=== PATIENT | male | born 1965 | race Caucasian/White ===

== ENCOUNTER 2016-09-02 12:15 | Observation (INO) | payer OTHER ==
[~2016-09-02] VITALS: Ht 180.3 cm; Wt 95.5 kg
[~2016-09-02 12:15] MED LIST: Ambien PO; CELEXA20 MG PO; Celexa PO; DILANTIN100 MG PO; LIBRIUM25 MG PO; NOHOMEMEDS; SUBOXONE; TRAZODONE; TRAZODONE HCL50 MG PO
[2016-09-02 13:46] LABS: HEMATOCRIT 41.1 % (38.0-50.0); MCH 31.3 PG (29.0-34.0); MCHC 34.5 G/DL (30.0-36.0); MCV 90.7 FL (86-99); MEAN PLAT.VOLUME 10.1 uM^3 (9.0-12.4); PLATELET COUNT 233 K/uL (156-360); RBC DIS.WIDTH-CV 13.8 % (11.8-14.6); RBC DIS.WIDTH-SD 44.7 % (39-53); RED BLOOD COUNT 4.53 M/uL (4.00-5.50); WHITE BLOOD COUNT 5.6 K/uL (4.1-10.2)
[2016-09-02 13:54] LABS: CHLORIDE 110 mEq/L (99-109); POTASSIUM 4.1 mEq/L (3.7-5.4); SODIUM 144 mEq/L (136-147)
[2016-09-02 13:56] LABS: GLUCOSE 104 mg/dL (70-99)
[2016-09-02 13:57] LABS: ANION GAP 12 MEQ/L (2-14)
[2016-09-02 14:00] LABS: GFR ESTIMATE (CALCULATED) > 59 mL/min/
[2016-09-02 14:01] LABS: UREA NITROGEN (BUN) 15 mg/dL (9-23)
[2016-09-02 14:04] LABS: TROP-I INTERPRETATION NEGATIVE; TROPONIN-I < 0.01 ng/mL (0.0-0.30)
[2016-09-02 14:31] LABS: SERUM ETHYL ALCOHOL 171 mg/dL
[2016-09-02] MEDS ORDERED: ADVIL200 MG PO (14:59)
[2016-09-02 15:35] LABS: D-DIMER ELISA 0.31 mg/L FEU (< 0.57)
[2016-09-02 16:30] VITALS: BP 142/65
[2016-09-02 20:57] LABS: TROP-I INTERPRETATION NEGATIVE; TROPONIN-I < 0.01 ng/mL (0.0-0.30)
[2016-09-02 21:26] VITALS: BP 135/61
[2016-09-03 02:11] LABS: TROP-I INTERPRETATION NEGATIVE; TROPONIN-I < 0.01 ng/mL (0.0-0.30)
[2016-09-03 07:05] LABS: HEMATOCRIT 40.1 % (38.0-50.0); MCH 30.6 PG (29.0-34.0); MCHC 33.2 G/DL (30.0-36.0); MCV 92.2 FL (86-99); MEAN PLAT.VOLUME 10.5 uM^3 (9.0-12.4); PLATELET COUNT 211 K/uL (156-360); RBC DIS.WIDTH-SD 47.5 % (39-53); RED BLOOD COUNT 4.35 M/uL (4.00-5.50)
[2016-09-03 07:13] LABS: PROTHROMBIN TIME 10.5 (9.2-11.2)
[2016-09-03 07:15] LABS: WHITE BLOOD COUNT 8.2 K/uL (4.1-10.2)
[2016-09-03 07:26] LABS: ANION GAP 6 MEQ/L (2-14); CHLORIDE 106 MEQ/L (99-109); GFR ESTIMATE (CALCULATED) > 59 mL/min/; GLUCOSE 86 mg/dL (70-99); POTASSIUM 4.4 MEQ/L (3.7-5.4); SAMPLE HEMOLYSIS CHECK 0; SAMPLE ICTERIC CHECK 0; SAMPLE LIPEMIA CHECK 0; SODIUM 141 MEQ/L (136-147); UREA NITROGEN (BUN) 19 mg/dL (9-23)
[2016-09-03 08:00] VITALS: BP 132/67
[2016-09-03 12:52] VITALS: BP 131/62
[2016-09-03] MEDS ORDERED: TRAZODONE HCL150 MG PO (14:03)
[2016-09-03] MEDS ORDERED: LOPRESSOR25 MG PO (14:07)
[2016-09-03] MEDS ORDERED: CELEXA40 MG PO (14:08)
[2016-09-03] MEDS ORDERED: METOPROLOL SUCC25 MG PO (14:19)
== END 2016-09-03 15:36 | disposition home or self-care (01) ==
LOC: EME 12:15 → EDOF 14:31 → 5WEST 14:31
PROVIDERS: Emergency Medicine; Nurse Practitioner Adult Health
DX: R07.9 Chest pain, unspecified (principal); F10.288 Alcohol dependence with other alcohol-induced disorder; F32.9 Major depressive disorder, single episode, unspecified; Y90.6 Blood alcohol level of 120-199 mg/100 ml; R94.31 Abnormal electrocardiogram [ECG] [EKG]; R06.02 Shortness of breath; Z95.828 Presence of other vascular implants and grafts; Z88.6 Allergy status to analgesic agent; Z88.7 Allergy status to serum and vaccine; Z86.69 Personal history of other diseases of the nervous system and sense organs
CPT/HCPCS: 71020; 80048; 82948; 83880; 84484; 85027; 85379; 85610; 93005; 99281; 99285; G0378; G0480

== ENCOUNTER 2016-12-08 02:46 | Emergency (ER) | payer OTHER ==
[~2016-12-08] VITALS: Ht 175.3 cm; Wt 98.9 kg
[~2016-12-08 02:46] MED LIST changes: +ADVIL200 MG PO; +CELEXA40 MG PO; +LOPRESSOR25 MG PO; +METOPROLOL SUCC25 MG PO; +TRAZODONE HCL150 MG PO
[2016-12-08 03:24] VITALS: BP 102/69
[2016-12-09] MEDS ORDERED: CELEXA20 MG PO (07:41)
[2016-12-09] MEDS ORDERED: IBUPROFEN400 MG PO (07:56)
[2016-12-09] MEDS ORDERED: TOPROL XL25 MG PO (07:57)
== END 2016-12-08 03:38 | disposition home or self-care (01) ==
LOC: EME 02:46
DX: F32.9 Major depressive disorder, single episode, unspecified (principal); F10.99 Alcohol use, unspecified with unspecified alcohol-induced disorder; Z59.0 Homelessness; F17.200 Nicotine dependence, unspecified, uncomplicated
CPT/HCPCS: 99281; 99284

== ENCOUNTER 2016-12-09 03:21 | Inpatient (IN) | payer OTHER ==
[~2016-12-09] VITALS: Ht 182.9 cm; Wt 98.9 kg
[2016-12-09 04:14] LABS: HEMATOCRIT 40.4 % (38.0-50.0); MCH 31.2 PG (29.0-34.0); MCHC 34.4 G/DL (30.0-36.0); MCV 90.6 FL (86-99); MEAN PLAT.VOLUME 9.9 uM^3 (9.0-12.4); PLATELET COUNT 195 K/uL (156-360); RBC DIS.WIDTH-CV 12.6 % (11.8-14.6); RBC DIS.WIDTH-SD 41.4 % (39-53); RED BLOOD COUNT 4.46 M/uL (4.00-5.50); WHITE BLOOD COUNT 7.3 K/uL (4.1-10.2)
[2016-12-09 04:25] LABS: CHLORIDE 109 mEq/L (99-109); POTASSIUM 2.8 mEq/L (3.7-5.4); SODIUM 142 mEq/L (136-147)
[2016-12-09 04:27] LABS: GLUCOSE 100 mg/dL (70-99)
[2016-12-09 04:28] LABS: ANION GAP 13 MEQ/L (2-14)
[2016-12-09 04:30] LABS: SERUM ETHYL ALCOHOL 163 mg/dL
[2016-12-09 04:31] LABS: GFR ESTIMATE (CALCULATED) > 59 mL/min/
[2016-12-09 04:33] LABS: UREA NITROGEN (BUN) 17 mg/dL (9-23)
[2016-12-09 04:34] LABS: SALICYLATE < 5.0 MG/DL (15-30)
[2016-12-09] MEDS ORDERED: CELEXA20 MG PO (07:41)
[2016-12-09 07:54] LABS: ADD MEDTOX COMMENT Y; AMPHETAMINE NEGATIVE (500 ng/mL); BARBITURATES PRESUMPTIVE POSITIVE (200 ng/mL); BENZODIAZEPINES NEGATIVE (150 ng/mL); COCAINE NEGATIVE (150 ng/mL); INTERNAL CONTROLS VALID? YES; METHADONE NEGATIVE (200 ng/mL); METHAMPHETAMINE NEGATIVE (500 ng/mL); OPIATES (MORPHINE) NEGATIVE (100 ng/mL); OXYCODONE NEGATIVE (100 ng/mL); PHENCYCLIDINE NEGATIVE (25 ng/mL); PROPOXYPHENE NEGATIVE (300 ng/mL); THC CANNABINOIDS NEGATIVE (50 ng/mL); TRICYCLIC ANTIDEPRESSANTS NEGATIVE (300 ng/mL)
[2016-12-09] MEDS ORDERED: IBUPROFEN400 MG PO (07:56)
[2016-12-09] MEDS ORDERED: TOPROL XL25 MG PO (07:57)
[2016-12-09 08:29] LABS: BARBITUATES QUANT VALUE 0 NG/ML
[2016-12-09 12:04] VITALS: BP 153/84
[2016-12-09 15:35] VITALS: BP 142/77
[2016-12-10 09:00] VITALS: BP 152/83
[2016-12-10 14:01] VITALS: BP 139/78
[2016-12-10 16:05] VITALS: BP 171/84
[2016-12-10 18:28] VITALS: BP 162/83
[2016-12-11 07:45] VITALS: BP 126/77
[2016-12-11 15:56] VITALS: BP 152/77
[2016-12-12 07:57] VITALS: BP 127/64
[2016-12-12 15:54] VITALS: BP 124/64
[2016-12-13 08:14] VITALS: BP 147/83
== END 2016-12-13 12:30 | disposition other institution (70) | DRG 885 ==
LOC: EME → EDBD 03:21 → EME 03:21 → 1WEST 10:05 → EDOF 10:05 → 1WEST 11:58
PROVIDERS: Emergency Medicine
DX: F33.9 Major depressive disorder, recurrent, unspecified (principal); G40.909 Epilepsy, unspecified, not intractable, without status epilepticus; I10 Essential (primary) hypertension; F10.20 Alcohol dependence, uncomplicated; T43.222D Poisoning by selective serotonin reuptake inhibitors, intentional self-harm, subsequent encounter; Z59.0 Homelessness; G47.00 Insomnia, unspecified; F17.210 Nicotine dependence, cigarettes, uncomplicated
CPT/HCPCS: 71020; 80048; 84132; 84999; 85027; 90837; 93005; 97150 GO; 97165 GO; 99281; 99285; G0480

== ENCOUNTER 2017-02-07 17:19 | Emergency (ER) | payer OTHER ==
[~2017-02-07] VITALS: Ht 177.8 cm; Wt 95.4 kg
[~2017-02-07 17:19] MED LIST changes: +IBUPROFEN400 MG PO; +TOPROL XL25 MG PO
[2017-02-07 18:12] LABS: BASOPHIL COUNT 0.1 K/uL (0-0.1); EOSINOPHIL (%) 1.9 % (0-5); EOSINOPHIL COUNT 0.2 K/uL (0-0.3); HEMATOCRIT 42.2 % (38.0-50.0); IMMATURE GRANULOCYTE (%) 0.9 % (0.0-0.7); IMMATURE GRANULOCYTE COUNT 0.1 K/uL; INSTRUMENT ABS NEUTROPHIL CT 5.3 K/uL; LYMPHOCYTE COUNT 2.4 K/uL (1.0-2.8); MCH 30.9 PG (29.0-34.0); MCHC 34.4 G/DL (30.0-36.0); MEAN PLAT.VOLUME 9.7 uM^3 (9.0-12.4); MONOCYTE (%) 5.7 % (3-12); MONOCYTE COUNT 0.5 K/uL (0-0.8); NEUTROPHIL (%) 62.2 % (45-76); NEUTROPHIL COUNT 5.3 K/uL (1.8-6.4); PLATELET COUNT 225 K/uL (156-360); RBC DIS.WIDTH-CV 12.6 % (11.8-14.6); RBC DIS.WIDTH-SD 41.3 % (39-53); RED BLOOD COUNT 4.69 M/uL (4.00-5.50); WHITE BLOOD COUNT 8.4 K/uL (4.1-10.2)
[2017-02-07 18:19] LABS: CHLORIDE 103 mEq/L (99-109); POTASSIUM 3.7 mEq/L (3.7-5.4); SODIUM 135 mEq/L (136-147)
[2017-02-07 18:21] LABS: GLUCOSE 90 mg/dL (70-99)
[2017-02-07 18:22] LABS: ANION GAP 9 MEQ/L (2-14)
[2017-02-07 18:24] LABS: SERUM ETHYL ALCOHOL 232 mg/dL
[2017-02-07 18:25] LABS: GFR ESTIMATE (CALCULATED) > 59 mL/min/
[2017-02-07 18:26] LABS: UREA NITROGEN (BUN) 9 mg/dL (9-23)
[2017-02-07 18:28] LABS: SALICYLATE < 5.0 MG/DL (15-30)
[2017-02-07 20:07] LABS: AMPHETAMINE NEGATIVE (500 ng/mL); BARBITURATES NEGATIVE (200 ng/mL); BENZODIAZEPINES NEGATIVE (150 ng/mL); COCAINE NEGATIVE (150 ng/mL); INTERNAL CONTROLS VALID? YES; METHADONE NEGATIVE (200 ng/mL); METHAMPHETAMINE NEGATIVE (500 ng/mL); OPIATES (MORPHINE) NEGATIVE (100 ng/mL); OXYCODONE NEGATIVE (100 ng/mL); PHENCYCLIDINE NEGATIVE (25 ng/mL); PROPOXYPHENE NEGATIVE (300 ng/mL); THC CANNABINOIDS NEGATIVE (50 ng/mL); TRICYCLIC ANTIDEPRESSANTS NEGATIVE (300 ng/mL)
[2017-02-07 22:03] VITALS: BP 112/69
== END 2017-02-07 22:05 | disposition home or self-care (01) ==
LOC: EME 17:19
PROVIDERS: Emergency Medicine
DX: F32.9 Major depressive disorder, single episode, unspecified (principal); Z91.5 Personal history of self-harm; J45.909 Unspecified asthma, uncomplicated; I10 Essential (primary) hypertension; I25.2 Old myocardial infarction; K21.9 Gastro-esophageal reflux disease without esophagitis; F17.200 Nicotine dependence, unspecified, uncomplicated
CPT/HCPCS: 80048; 85025; 99281; 99284; G0480

== ENCOUNTER 2017-03-07 13:12 | Emergency (ER) | payer OTHER ==
[~2017-03-07] VITALS: Ht 177.8 cm; Wt 95.4 kg
[2017-03-07 16:22] LABS: HEMATOCRIT 41.5 % (38.0-50.0); MCH 31.3 PG (29.0-34.0); MCHC 34.7 G/DL (30.0-36.0); MCV 90.2 FL (86-99); MEAN PLAT.VOLUME 9.9 uM^3 (9.0-12.4); PLATELET COUNT 233 K/uL (156-360); RBC DIS.WIDTH-CV 12.4 % (11.8-14.6); RBC DIS.WIDTH-SD 41.3 % (39-53); WHITE BLOOD COUNT 13.8 K/uL (4.1-10.2)
[2017-03-07 16:38] LABS: CHLORIDE 102 mEq/L (99-109); POTASSIUM 4.3 mEq/L (3.7-5.4); SODIUM 137 mEq/L (136-147)
[2017-03-07 16:41] LABS: GLUCOSE 90 mg/dL (70-99)
[2017-03-07 16:42] LABS: ANION GAP 9 MEQ/L (2-14); TOTAL BILIRUBIN 0.4 mg/dL (0.0-1.0)
[2017-03-07 16:43] LABS: SERUM ETHYL ALCOHOL < 10 mg/dL
[2017-03-07 16:44] LABS: ALKALINE PHOSPHATASE 82 IU/L (3-129); GFR ESTIMATE (CALCULATED) > 59 mL/min/
[2017-03-07 16:45] LABS: UREA NITROGEN (BUN) 11 mg/dL (9-23)
[2017-03-07] MEDS ORDERED: KEPPRA500 MG PO (17:20)
[2017-03-07 17:26] LABS: ADD MIUA? YES; BILIRUBIN NEGATIVE; BLOOD SMALL; COLOR YELLOW ((YELLOW)); GLUCOSE (STRIP) NEGATIVE; KETONES NEGATIVE; LEUKOCYTES NEGATIVE; NITRITE NEGATIVE; PROTEIN (STRIP) NEGATIVE; SPECIFIC GRAVITY 1.012 (1.000-1.030); UROBILINOGEN 0.2 MG/DL (0.2-1.0)
[2017-03-07 17:33] LABS: BACTERIA NONE SEEN /HPF; EPITHELIAL CELLS RARE /HPF; MUCUS TRACE /LPF; WHITE BLOOD CELLS 0-5 /HPF (0-5)
[2017-03-07 17:38] VITALS: BP 139/72
[2017-03-07 17:50] LABS: AMPHETAMINE NEGATIVE (500 ng/mL); BARBITURATES NEGATIVE (200 ng/mL); BENZODIAZEPINES NEGATIVE (150 ng/mL); COCAINE NEGATIVE (150 ng/mL); INTERNAL CONTROLS VALID? YES; METHADONE NEGATIVE (200 ng/mL); METHAMPHETAMINE NEGATIVE (500 ng/mL); OPIATES (MORPHINE) NEGATIVE (100 ng/mL); OXYCODONE NEGATIVE (100 ng/mL); PHENCYCLIDINE NEGATIVE (25 ng/mL); PROPOXYPHENE NEGATIVE (300 ng/mL); THC CANNABINOIDS NEGATIVE (50 ng/mL); TRICYCLIC ANTIDEPRESSANTS NEGATIVE (300 ng/mL)
== END 2017-03-07 17:39 | disposition home or self-care (01) ==
LOC: EME 13:12
PROVIDERS: Emergency Medicine
DX: R56.9 Unspecified convulsions (principal); I10 Essential (primary) hypertension; I25.2 Old myocardial infarction; K21.9 Gastro-esophageal reflux disease without esophagitis; F17.200 Nicotine dependence, unspecified, uncomplicated
CPT/HCPCS: 70450; 80053; 81003; 85027; 99281; 99284; G0480

== ENCOUNTER 2017-03-09 16:01 | Emergency (ER) | payer OTHER ==
[~2017-03-09] VITALS: Ht 177.8 cm; Wt 95.4 kg
[~2017-03-09 16:01] MED LIST changes: +KEPPRA500 MG PO
[2017-03-09 20:54] LABS: HEMATOCRIT 41.9 % (38.0-50.0); MCHC 34.6 G/DL (30.0-36.0); MCV 89.7 FL (86-99); MEAN PLAT.VOLUME 9.7 uM^3 (9.0-12.4); PLATELET COUNT 228 K/uL (156-360); RBC DIS.WIDTH-CV 12.7 % (11.8-14.6); RBC DIS.WIDTH-SD 41.8 % (39-53); RED BLOOD COUNT 4.67 M/uL (4.00-5.50); WHITE BLOOD COUNT 7.5 K/uL (4.1-10.2)
[2017-03-09 21:02] LABS: CHLORIDE 106 mEq/L (99-109); SODIUM 141 mEq/L (136-147)
[2017-03-09 21:04] LABS: GLUCOSE 112 mg/dL (70-99)
[2017-03-09 21:05] LABS: ANION GAP 8 MEQ/L (2-14)
[2017-03-09 21:08] LABS: GFR ESTIMATE (CALCULATED) > 59 mL/min/
[2017-03-09 21:09] LABS: UREA NITROGEN (BUN) 6 mg/dL (9-23)
[2017-03-09 22:03] VITALS: BP 149/76
== END 2017-03-09 22:04 | disposition home or self-care (01) ==
LOC: EME 16:01
PROVIDERS: Emergency Medicine
DX: S63.501A Unspecified sprain of right wrist, initial encounter (principal); X58.XXXA Exposure to other specified factors, initial encounter; M54.2 Cervicalgia; F10.129 Alcohol abuse with intoxication, unspecified; I10 Essential (primary) hypertension; F17.200 Nicotine dependence, unspecified, uncomplicated
CPT/HCPCS: 73130; 80048; 85027; 99281; 99283

== ENCOUNTER 2017-07-08 19:46 | Inpatient (IN) | payer OTHER ==
[~2017-07-08] VITALS: Ht 185.4 cm; Wt 100.5 kg
[~2017-07-08 19:46] MED LIST changes: +PREDNISONE50 MG PO
[2017-07-08 20:35] LABS: HEMATOCRIT 40.9 % (38.0-50.0); MCH 30.8 PG (29.0-34.0); MCHC 34.7 G/DL (30.0-36.0); MCV 88.7 FL (86-99); MEAN PLAT.VOLUME 9.5 uM^3 (9.0-12.4); PLATELET COUNT 234 K/uL (156-360); RBC DIS.WIDTH-CV 12.7 % (11.8-14.6); RBC DIS.WIDTH-SD 41.4 % (39-53); RED BLOOD COUNT 4.61 M/uL (4.00-5.50); WHITE BLOOD COUNT 13.7 K/uL (4.1-10.2)
[2017-07-08 20:47] LABS: AMPHETAMINE NEGATIVE (500 ng/mL); BARBITURATES NEGATIVE (200 ng/mL); BENZODIAZEPINES NEGATIVE (150 ng/mL); COCAINE NEGATIVE (150 ng/mL); INTERNAL CONTROLS VALID? YES; METHADONE NEGATIVE (200 ng/mL); METHAMPHETAMINE NEGATIVE (500 ng/mL); OPIATES (MORPHINE) NEGATIVE (100 ng/mL); OXYCODONE NEGATIVE (100 ng/mL); PHENCYCLIDINE NEGATIVE (25 ng/mL); PROPOXYPHENE NEGATIVE (300 ng/mL); THC CANNABINOIDS NEGATIVE (50 ng/mL); TRICYCLIC ANTIDEPRESSANTS NEGATIVE (300 ng/mL)
[2017-07-08 21:00] LABS: CHLORIDE 109 mEq/L (99-109); SODIUM 140 mEq/L (136-147)
[2017-07-08 21:02] LABS: GLUCOSE 102 mg/dL (70-99)
[2017-07-08 21:03] LABS: ANION GAP 10 MEQ/L (2-14); TROP-I INTERPRETATION NEGATIVE; TROPONIN-I < 0.01 ng/mL (0.0-0.30)
[2017-07-08 21:05] LABS: SERUM ETHYL ALCOHOL 217 mg/dL
[2017-07-08 21:06] LABS: GFR ESTIMATE (CALCULATED) > 59 mL/min/
[2017-07-08 21:07] LABS: UREA NITROGEN (BUN) 17 mg/dL (9-23)
[2017-07-08 22:31] LABS: TROP-I INTERPRETATION NEGATIVE; TROPONIN-I < 0.01 ng/mL (0.0-0.30)
[2017-07-09] MEDS ORDERED: ELIQUIS5 MG PO (01:51)
[2017-07-09 03:05] VITALS: BP 129/79
[2017-07-09] MEDS ORDERED: KEPPRA750 MG PO (03:19)
[2017-07-09] MEDS ORDERED: SEROQUEL50 MG PO (03:21)
[2017-07-09 03:22] VITALS: BP 129/79
[2017-07-09 07:41] VITALS: BP 140/80
[2017-07-09 15:23] VITALS: BP 169/92
[2017-07-09 17:56] VITALS: BP 137/79
[2017-07-10 07:22] VITALS: BP 135/83
[2017-07-10 15:33] VITALS: BP 115/64
[2017-07-11 07:59] VITALS: BP 122/75
[2017-07-11] MEDS ORDERED: MIRTAZAPINE30 MG PO (09:11)
== END 2017-07-11 12:15 | disposition home or self-care (01) | DRG 885 ==
LOC: EME 19:46 → EDOF 07-09 01:49 → 1WEST 07-09 01:49 → ENRESERV 07-09 03:00 → 1WEST 07-09 03:01
PROVIDERS: Emergency Medicine
DX: F33.1 Major depressive disorder, recurrent, moderate (principal); F10.229 Alcohol dependence with intoxication, unspecified; I10 Essential (primary) hypertension; R45.851 Suicidal ideations; F17.200 Nicotine dependence, unspecified, uncomplicated; I25.2 Old myocardial infarction; Z59.0 Homelessness; Z87.820 Personal history of traumatic brain injury
CPT/HCPCS: 71020; 80048; 84484; 85027; 90839; 93005; 97150 GO; 97165 GO; 99281; 99285; G0480

== ENCOUNTER 2017-07-11 18:11 | Emergency (ER) | payer OTHER ==
[~2017-07-11] VITALS: Ht 180.3 cm; Wt 96.3 kg
[~2017-07-11 18:11] MED LIST changes: +ELIQUIS5 MG PO; +KEPPRA750 MG PO; +MIRTAZAPINE30 MG PO; +SEROQUEL50 MG PO
[2017-07-11 20:04] LABS: BASOPHIL COUNT 0.1 K/uL (0-0.1); EOSINOPHIL (%) 1.9 % (0-5); EOSINOPHIL COUNT 0.2 K/uL (0-0.3); HEMATOCRIT 41.2 % (38.0-50.0); IMMATURE GRANULOCYTE (%) 0.7 % (0.0-0.7); IMMATURE GRANULOCYTE COUNT 0.1 K/uL; INSTRUMENT ABS NEUTROPHIL CT 5.5 K/uL; LYMPHOCYTE COUNT 3.6 K/uL (1.0-2.8); MCH 30.9 PG (29.0-34.0); MCV 88.4 FL (86-99); MEAN PLAT.VOLUME 9.9 uM^3 (9.0-12.4); MONOCYTE (%) 5.3 % (3-12); MONOCYTE COUNT 0.5 K/uL (0-0.8); NEUTROPHIL (%) 55.1 % (45-76); NEUTROPHIL COUNT 5.5 K/uL (1.8-6.4); PLATELET COUNT 225 K/uL (156-360); RBC DIS.WIDTH-CV 12.5 % (11.8-14.6); RBC DIS.WIDTH-SD 40.5 % (39-53); RED BLOOD COUNT 4.66 M/uL (4.00-5.50); WHITE BLOOD COUNT 9.9 K/uL (4.1-10.2)
[2017-07-11 20:19] LABS: CHLORIDE 106 mEq/L (99-109); POTASSIUM 3.7 mEq/L (3.7-5.4); SODIUM 142 mEq/L (136-147)
[2017-07-11 20:20] LABS: MAGNESIUM 2.3 mg/dL (1.3-2.7)
[2017-07-11 20:21] LABS: GLUCOSE 95 mg/dL (70-99)
[2017-07-11 20:22] LABS: ANION GAP 12 MEQ/L (2-14)
[2017-07-11 20:23] LABS: TOTAL BILIRUBIN 0.3 mg/dL (0.0-1.0)
[2017-07-11 20:24] LABS: SERUM ETHYL ALCOHOL 123 mg/dL
[2017-07-11 20:25] LABS: GFR ESTIMATE (CALCULATED) > 59 mL/min/
[2017-07-11 20:26] LABS: ALKALINE PHOSPHATASE 80 IU/L (3-129)
[2017-07-11 20:27] LABS: UREA NITROGEN (BUN) 19 mg/dL (9-23)
[2017-07-11 20:28] LABS: SALICYLATE < 5.0 MG/DL (15-30)
[2017-07-11 20:49] LABS: ADD MIUA? YES; BILIRUBIN NEGATIVE; BLOOD SMALL; COLOR STRAW ((YELLOW)); GLUCOSE (STRIP) NEGATIVE; KETONES NEGATIVE; LEUKOCYTES NEGATIVE; NITRITE NEGATIVE; PROTEIN (STRIP) NEGATIVE; SPECIFIC GRAVITY 1.005 (1.000-1.030); UROBILINOGEN 0.2 MG/DL (0.2-1.0)
[2017-07-11 20:52] LABS: BACTERIA NONE SEEN /HPF; EPITHELIAL CELLS NONE SEEN /HPF; MUCUS NONE SEEN /LPF; RED BLOOD CELLS 0-5 /HPF (0-5); UCUL ADDED? NO; WHITE BLOOD CELLS 0-5 /HPF (0-5)
[2017-07-11 21:00] LABS: AMPHETAMINE NEGATIVE (500 ng/mL); BARBITURATES NEGATIVE (200 ng/mL); BENZODIAZEPINES NEGATIVE (150 ng/mL); COCAINE NEGATIVE (150 ng/mL); INTERNAL CONTROLS VALID? YES; METHADONE NEGATIVE (200 ng/mL); METHAMPHETAMINE NEGATIVE (500 ng/mL); OPIATES (MORPHINE) NEGATIVE (100 ng/mL); OXYCODONE NEGATIVE (100 ng/mL); PHENCYCLIDINE NEGATIVE (25 ng/mL); PROPOXYPHENE NEGATIVE (300 ng/mL); THC CANNABINOIDS NEGATIVE (50 ng/mL); TRICYCLIC ANTIDEPRESSANTS NEGATIVE (300 ng/mL)
[2017-07-12 09:33] VITALS: BP 142/89
== END 2017-07-12 09:34 | disposition home or self-care (01) ==
LOC: EME 18:11
PROVIDERS: Emergency Medicine
DX: F33.2 Major depressive disorder, recurrent severe without psychotic features (principal); F10.20 Alcohol dependence, uncomplicated; Z76.5 Malingerer [conscious simulation]; Y90.6 Blood alcohol level of 120-199 mg/100 ml; J45.909 Unspecified asthma, uncomplicated; I11.0 Hypertensive heart disease with heart failure; I50.9 Heart failure, unspecified; F17.200 Nicotine dependence, unspecified, uncomplicated; I25.2 Old myocardial infarction; K21.9 Gastro-esophageal reflux disease without esophagitis; G40.909 Epilepsy, unspecified, not intractable, without status epilepticus; Z88.8 Allergy status to other drugs, medicaments and biological substances
CPT/HCPCS: 80053; 81003; 83735; 85025; 90837; 93005; 99281; 99285; G0480

== ENCOUNTER 2017-10-04 04:21 | Emergency (ER) | payer OTHER ==
[~2017-10-04] VITALS: Ht 177.8 cm; Wt 103.4 kg
[2017-10-04 04:52] LABS: BASOPHIL (%) 0.6 % (0-1); BASOPHIL COUNT 0.1 K/uL (0-0.1); EOSINOPHIL (%) 0.7 % (0-5); EOSINOPHIL COUNT 0.1 K/uL (0-0.3); HEMATOCRIT 41.4 % (38.0-50.0); HEMOGLOBIN 14.1 G/DL (12.5-16.6); IMMATURE GRANULOCYTE (%) 0.7 % (0.0-0.7); LYMPHOCYTE (%) 14.1 % (15-42); LYMPHOCYTE COUNT 1.2 K/uL (1.0-2.8); MCH 30.5 PG (29.0-34.0); MCHC 34.1 G/DL (30.0-36.0); MCV 89.4 FL (86-99); MONOCYTE (%) 4.5 % (3-12); MONOCYTE COUNT 0.4 K/uL (0-0.8); NEUTROPHIL (%) 79.4 % (45-76); NEUTROPHIL COUNT 6.6 K/uL (1.8-6.4); PLATELET COUNT 241 K/uL (156-360); RBC DIS.WIDTH-CV 12.5 % (11.8-14.6); RED BLOOD COUNT 4.63 M/uL (4.00-5.50); WHITE BLOOD COUNT 8.3 K/uL (4.1-10.2)
[2017-10-04 05:02] LABS: ALBUMIN 4.1 g/dL (3.2-4.8); CHLORIDE 109 mEq/L (99-109); POTASSIUM 4.2 mEq/L (3.7-5.4); SODIUM 139 mEq/L (136-147)
[2017-10-04 05:05] LABS: GLUCOSE 171 mg/dL (70-99); TOTAL PROTEIN 6.9 g/dL (6.4-8.3)
[2017-10-04 05:06] LABS: TOTAL BILIRUBIN 0.2 mg/dL (0.0-1.0)
[2017-10-04 05:07] LABS: SERUM ETHYL ALCOHOL < 10 mg/dL
[2017-10-04 05:08] LABS: ALKALINE PHOSPHATASE 92 IU/L (3-129); CREATININE 1.1 mg/dL (0.6-1.3); GFR ESTIMATE (CALCULATED) > 59 mL/min/ (58.99-99999)
[2017-10-04 05:09] LABS: UREA NITROGEN (BUN) 20 mg/dL (9-23)
[2017-10-04 05:10] LABS: AST (GOT) 19 IU/L (2-34)
[2017-10-04 05:11] LABS: ALT (GPT) 26 IU/L (3-49); CREATINE KINASE 63 IU/L (1-294); TOTAL CK 63 IU/L (1-294); TROP-I INTERPRETATION NEGATIVE; TROPONIN-I 0.03 ng/mL (0.0-0.30)
[2017-10-04 05:20] LABS: CK-MB 1.1 ng/mL (0.0-4.9); CKMB RELATIVE INDEX 1.7 (0.0-3.9)
[2017-10-04] MEDS ORDERED: KEPPRA1000 MG PO (07:10)
[2017-10-04 07:28] VITALS: BP 133/87
== END 2017-10-04 07:49 | disposition home or self-care (01) ==
LOC: EME → EDBD 04:21 → EME 07:49
PROVIDERS: Emergency Medicine
DX: G40.89 Other seizures (principal); Z87.820 Personal history of traumatic brain injury; R00.0 Tachycardia, unspecified; I45.2 Bifascicular block; J98.11 Atelectasis; R91.8 Other nonspecific abnormal finding of lung field; R94.31 Abnormal electrocardiogram [ECG] [EKG]; I11.0 Hypertensive heart disease with heart failure; I50.9 Heart failure, unspecified; K21.9 Gastro-esophageal reflux disease without esophagitis; J45.909 Unspecified asthma, uncomplicated; I25.2 Old myocardial infarction; F17.200 Nicotine dependence, unspecified, uncomplicated; Z95.2 Presence of prosthetic heart valve; Z88.6 Allergy status to analgesic agent; Z88.8 Allergy status to other drugs, medicaments and biological substances
CPT/HCPCS: 70450; 71046; 80053; 82550; 82553; 84484; 85025; 93005; 99281; 99284; G0480; J7040

== ENCOUNTER → 2018-03-08 | Emergency (ER) | payer OTHER ==
[~2018-03-08] VITALS: Ht 177.8 cm; Wt 113.8 kg
[~2018-03-08] MED LIST changes: +KEPPRA1000 MG PO
[2018-03-08 23:57] LABS: HEMATOCRIT 40.5 % (38.0-50.0); HEMOGLOBIN 14.4 G/DL (12.5-16.6); MCH 31.3 PG (29.0-34.0); MCHC 35.6 G/DL (30.0-36.0); PLATELET COUNT 234 K/uL (156-360); RBC DIS.WIDTH-CV 12.9 % (11.8-14.6); RBC DIS.WIDTH-SD 41.6 % (39-53); WHITE BLOOD COUNT 9.7 K/uL (4.1-10.2)
[2018-03-09 00:05] LABS: ALBUMIN 4.2 g/dL (3.2-4.8); CHLORIDE 107 mEq/L (99-109); POTASSIUM 3.5 mEq/L (3.7-5.4); SODIUM 143 mEq/L (136-147)
[2018-03-09 00:08] LABS: GLUCOSE 97 mg/dL (70-99)
[2018-03-09 00:09] LABS: TOTAL BILIRUBIN 0.3 mg/dL (0.0-1.0)
[2018-03-09 00:10] LABS: SERUM ETHYL ALCOHOL 204 mg/dL
[2018-03-09 00:11] LABS: ALKALINE PHOSPHATASE 91 IU/L (3-129); CREATININE 0.9 mg/dL (0.6-1.3); GFR ESTIMATE (CALCULATED) > 59 mL/min/ (58.99-99999)
[2018-03-09 00:12] LABS: UREA NITROGEN (BUN) 16 mg/dL (9-23)
[2018-03-09 00:13] LABS: AST (GOT) 17 IU/L (2-34)
[2018-03-09 00:13] LABS: AMPHETAMINE NEGATIVE (500 ng/mL); BARBITURATES NEGATIVE (200 ng/mL); BENZODIAZEPINES NEGATIVE (150 ng/mL); BUPRENORPHINE NEGATIVE (10 ng/mL); COCAINE NEGATIVE (150 ng/mL); METHADONE NEGATIVE (200 ng/mL); METHAMPHETAMINE NEGATIVE (500 ng/mL); OPIATES (MORPHINE) NEGATIVE (100 ng/mL); OXYCODONE NEGATIVE (100 ng/mL); PHENCYCLIDINE NEGATIVE (25 ng/mL); PROPOXYPHENE NEGATIVE (300 ng/mL); THC CANNABINOIDS NEGATIVE (50 ng/mL); TRICYCLIC ANTIDEPRESSANTS PRESUMPTIVE POSITIVE (300 ng/mL)
[2018-03-09 00:14] LABS: ALT (GPT) 22 IU/L (3-49)
[2018-03-09 06:49] VITALS: BP 137/86
== END | disposition home or self-care (01) ==
LOC: EME 22:34
PROVIDERS: Emergency Medicine
DX: T14.91XA Suicide attempt, initial encounter (principal); F33.0 Major depressive disorder, recurrent, mild; R45.851 Suicidal ideations; F10.20 Alcohol dependence, uncomplicated; Z59.0 Homelessness; K21.9 Gastro-esophageal reflux disease without esophagitis; J45.909 Unspecified asthma, uncomplicated; I10 Essential (primary) hypertension; R56.9 Unspecified convulsions; I25.2 Old myocardial infarction; F17.200 Nicotine dependence, unspecified, uncomplicated; Z88.6 Allergy status to analgesic agent; Z88.8 Allergy status to other drugs, medicaments and biological substances
CPT/HCPCS: 80053; 85027; 90839; 93005; 99281; 99285; G0480

== ENCOUNTER 2018-03-17 21:18 | Emergency (ER) | payer OTHER ==
[~2018-03-17] VITALS: Ht 180.3 cm; Wt 118.2 kg
[2018-03-17 22:01] LABS: BASOPHIL (%) 0.6 % (0-1); EOSINOPHIL (%) 3.6 % (0-5); EOSINOPHIL COUNT 0.3 K/uL (0-0.3); HEMATOCRIT 38.5 % (38.0-50.0); HEMOGLOBIN 13.8 G/DL (12.5-16.6); IMMATURE GRANULOCYTE (%) 0.4 % (0.0-0.7); LYMPHOCYTE (%) 56.5 % (15-42); MCH 31.9 PG (29.0-34.0); MCHC 35.8 G/DL (30.0-36.0); MCV 88.9 FL (86-99); MONOCYTE (%) 8.6 % (3-12); MONOCYTE COUNT 0.6 K/uL (0-0.8); NEUTROPHIL (%) 30.3 % (45-76); NEUTROPHIL COUNT 2.1 K/uL (1.8-6.4); PLATELET COUNT 186 K/uL (156-360); RBC DIS.WIDTH-SD 42.4 % (39-53); RED BLOOD COUNT 4.33 M/uL (4.00-5.50)
[2018-03-17 22:15] LABS: CHLORIDE 107 mEq/L (99-109); SODIUM 141 mEq/L (136-147)
[2018-03-17 22:17] LABS: GLUCOSE 88 mg/dL (70-99)
[2018-03-17 22:20] LABS: SERUM ETHYL ALCOHOL 211 mg/dL
[2018-03-17 22:21] LABS: CREATININE 0.8 mg/dL (0.6-1.3); GFR ESTIMATE (CALCULATED) > 59 mL/min/ (58.99-99999); UREA NITROGEN (BUN) 8 mg/dL (9-23)
[2018-03-18 01:21] LABS: AMPHETAMINE NEGATIVE (500 ng/mL); BARBITURATES NEGATIVE (200 ng/mL); BENZODIAZEPINES NEGATIVE (150 ng/mL); BUPRENORPHINE NEGATIVE (10 ng/mL); COCAINE NEGATIVE (150 ng/mL); METHADONE NEGATIVE (200 ng/mL); METHAMPHETAMINE NEGATIVE (500 ng/mL); OPIATES (MORPHINE) NEGATIVE (100 ng/mL); OXYCODONE NEGATIVE (100 ng/mL); PHENCYCLIDINE NEGATIVE (25 ng/mL); PROPOXYPHENE NEGATIVE (300 ng/mL); THC CANNABINOIDS NEGATIVE (50 ng/mL); TRICYCLIC ANTIDEPRESSANTS NEGATIVE (300 ng/mL)
[2018-03-18 08:20] VITALS: BP 110/60
== END 2018-03-18 08:30 | disposition home or self-care (01) ==
LOC: EME 21:18
PROVIDERS: Emergency Medicine
DX: F10.129 Alcohol abuse with intoxication, unspecified (principal); F33.2 Major depressive disorder, recurrent severe without psychotic features; Z63.4 Disappearance and death of family member; Z87.820 Personal history of traumatic brain injury; Y90.7 Blood alcohol level of 200-239 mg/100 ml; I11.0 Hypertensive heart disease with heart failure; I50.9 Heart failure, unspecified; I25.2 Old myocardial infarction; F17.200 Nicotine dependence, unspecified, uncomplicated
CPT/HCPCS: 80048; 85025; 90839; 99281; 99285; G0480